=== PATIENT | female | born 1995 | race Caucasian/White ===

== ENCOUNTER 2017-12-24 10:07 | Emergency (ER) | payer OTHER ==
[~2017-12-24] VITALS: Ht 154.9 cm; Wt 45.4 kg
[2017-12-24 10:21] LABS: URINE BLOOD TRACE (Negative); URINE CLARITY SL CLOUDY; URINE COLOR DARK YELLOW; URINE GLUCOSE-RANDOM NEGATIVE (Negative); URINE KETONES 2+ (Negative); URINE LEUKOCYTES-REFLEX NEGATIVE (Negative); URINE NITRITE-REFLEX NEGATIVE (Negative); URINE PROTEIN 1+ (Negative); URINE SPECIFIC GRAVITY >= 1.030 (1.005-1.030); URINE UROBILINOGEN 0.2 E.U./dl (0.2-1.0)
[2017-12-24 10:27] LABS: ICTOTEST (BILI CONFIRMATORY) Negative (Negative); URINE BILIRUBIN 1+ (Negative)
[2017-12-24 10:30] LABS: AMORPHOUS URATES Few /LPF (None Seen); BACTERIA-REFLEX >30 Many /HPF (None Seen); CASTS None Seen /LPF (None Seen); MUCUS 4-6 Moderate strn/LPF (None Seen); SQUAMOUS >10 Many /LPF (0-3)
[2017-12-24 10:31] LABS: URINE RBC 0-2 Rare /HPF (0-2); URINE WBC-REFLEX 0-5 Rare /HPF (0-5)
[2017-12-24 10:48] LABS: ABSOLUTE LYMPHOCYTES 0.9 thou/uL (0.8-5.3); ABSOLUTE MONOCYTES 0.3 thou/uL (0.0-1.2); ABSOLUTE NEUTROPHILS 6.1 thou/uL (1.6-8.1); BASOPHILS 0.3 %; EOSINOPHILS 0.2 %; HEMATOCRIT 42.9 % (37.0-47.0); HEMOGLOBIN 14.3 gm/dL (12.0-15.0); LYMPHOCYTES 12.7 %; MCH 30.7 pg (26.0-34.0); MCHC 33.2 g/dL (28.0-37.0); MCV 92.5 fL (80.0-100.0); MONOCYTES 4.5 %; NUCLEATED RBCS 0 /100WBC; PLATELET COUNT* 162 thou/uL (150-400); POLYS 82.3 %; RBC 4.64 mil/uL (4.20-5.00); RDW-CV 12.9 % (10.5-14.5); WBC 7.4 thou/uL (4.0-11.0)
[2017-12-24 10:50] LABS: CALCIUM 9.1 mg/dL (8.5-10.1); CREATININE 0.8 mg/dL (0.6-1.3); POTASSIUM 3.2 mmol/L (3.5-5.1)
[2017-12-24 10:55] LABS: ALBUMIN 4.6 g/dL (3.4-5.0); TOTAL BILIRUBIN 1.6 mg/dL (<0.1-1.0); TOTAL PROTEIN 8.8 g/dL (6.4-8.2)
[2017-12-24] MEDS ORDERED: OMEPRAZOLE20 M1 PO (11:09)
[2017-12-24] MEDS ORDERED: ZOFRAN4 MG PO (11:10)
[2017-12-24 11:24] VITALS: BP 113/63
[2017-12-25] MEDS ORDERED: PROMS25 WY RECTAL (12:49)
== END 2017-12-24 11:24 | disposition home or self-care (01) ==
LOC: M.ERS 10:07
PROVIDERS: Nurse Practitioner Family
DX: R10.13 Epigastric pain (principal); R11.10 Vomiting, unspecified

== ENCOUNTER 2017-12-25 11:02 | Emergency (ER) | payer OTHER ==
[~2017-12-25] VITALS: Ht 154.9 cm; Wt 43.1 kg
[~2017-12-25 11:02] MED LIST: OMEPRAZOLE20 M1 PO; ZOFRAN4 MG PO
[2017-12-25 11:38] LABS: ABSOLUTE LYMPHOCYTES 1.5 thou/uL (0.8-5.3); ABSOLUTE MONOCYTES 0.6 thou/uL (0.0-1.2); ABSOLUTE NEUTROPHILS 8.4 thou/uL (1.6-8.1); BASOPHILS 0.4 %; HEMOGLOBIN 13.6 gm/dL (12.0-15.0); LYMPHOCYTES 14.3 %; MCHC 34.1 g/dL (28.0-37.0); MONOCYTES 5.6 %; MPV 9.5 fl. (7.2-11.1); NUCLEATED RBCS 0 /100WBC; PLATELET COUNT* 177 thou/uL (150-400); POLYS 79.7 %; RBC 4.39 mil/uL (4.20-5.00); RDW-CV 12.6 % (10.5-14.5); WBC 10.5 thou/uL (4.0-11.0)
[2017-12-25 11:46] LABS: CREATININE 0.8 mg/dL (0.6-1.3)
[2017-12-25 11:49] LABS: URINE BLOOD NEGATIVE (Negative); URINE CLARITY CLEAR; URINE COLOR YELLOW; URINE GLUCOSE-RANDOM NEGATIVE (Negative); URINE KETONES 2+ (Negative); URINE LEUKOCYTES-REFLEX NEGATIVE (Negative); URINE NITRITE-REFLEX NEGATIVE (Negative); URINE PROTEIN 1+ (Negative); URINE SPECIFIC GRAVITY >= 1.030 (1.005-1.030); URINE UROBILINOGEN 0.2 E.U./dl (0.2-1.0)
[2017-12-25 11:50] LABS: ALBUMIN 4.4 g/dL (3.4-5.0); TOTAL BILIRUBIN 1.9 mg/dL (<0.1-1.0); TOTAL PROTEIN 8.5 g/dL (6.4-8.2)
[2017-12-25 11:51] LABS: ICTOTEST (BILI CONFIRMATORY) Negative (Negative); URINE BILIRUBIN 1+ (Negative)
[2017-12-25] MEDS ORDERED: PROMS25 WY RECTAL (12:49)
[2017-12-25 13:12] VITALS: BP 106/56
== END 2017-12-25 13:14 | disposition home or self-care (01) ==
LOC: M.ERS 11:02
PROVIDERS: Nurse Practitioner Family
DX: R10.13 Epigastric pain (principal); R11.2 Nausea with vomiting, unspecified

== ENCOUNTER 2017-12-26 00:13 | Inpatient (IN) | payer OTHER ==
[~2017-12-26] VITALS: Ht 154.9 cm; Wt 45.4 kg
--- NOTE | ~2017-12-26 | PROC ---
[facility] [address] [facility] [place] [address] PROCEDURE REPORT Name: BLACK TEJADA Room: [address] IN .R.#: [id number] Admission: 12/26/17 Attend Phys: Rosa Hanks Discharge: Date of : 89 Report #: [id number] THIS REPORT FOR: //name// For GI report, please see the Provation report in Perceptive 7 content. By: 1056Medical Records Staff ZARI /ASHLEY
[~2017-12-26 00:13] MED LIST changes: +PROMS25 WY RECTAL
[2017-12-26 00:20] VITALS: BP 122/65
[2017-12-26 00:51] LABS: CALCIUM 9.2 mg/dL (8.5-10.1); CREATININE 0.8 mg/dL (0.6-1.3); POTASSIUM 3.7 mmol/L (3.5-5.1)
[2017-12-26 00:52] LABS: ABSOLUTE LYMPHOCYTES 1.4 thou/uL (0.8-5.3); ABSOLUTE MONOCYTES 0.6 thou/uL (0.0-1.2); ABSOLUTE NEUTROPHILS 6.3 thou/uL (1.6-8.1); BASOPHILS 0.1 %; HEMATOCRIT 37.1 % (37.0-47.0); HEMOGLOBIN 12.7 gm/dL (12.0-15.0); LYMPHOCYTES 17.2 %; MCH 31.3 pg (26.0-34.0); MCHC 34.4 g/dL (28.0-37.0); MCV 91.1 fL (80.0-100.0); MONOCYTES 6.8 %; MPV 9.6 fl. (7.2-11.1); NUCLEATED RBCS 0 /100WBC; PLATELET COUNT* 156 thou/uL (150-400); POLYS 75.9 %; RBC 4.07 mil/uL (4.20-5.00); RDW-CV 12.6 % (10.5-14.5); WBC 8.3 thou/uL (4.0-11.0)
[2017-12-26 00:56] LABS: ALBUMIN 4.4 g/dL (3.4-5.0); TOTAL BILIRUBIN 2.1 mg/dL (<0.1-1.0); TOTAL PROTEIN 8.1 g/dL (6.4-8.2)
[2017-12-26 00:57] LABS: URINE BILIRUBIN NEGATIVE (Negative); URINE BLOOD NEGATIVE (Negative); URINE CLARITY CLEAR; URINE COLOR YELLOW; URINE GLUCOSE-RANDOM NEGATIVE (Negative); URINE LEUKOCYTES-REFLEX NEGATIVE (Negative); URINE NITRITE-REFLEX NEGATIVE (Negative); URINE PROTEIN 1+ (Negative); URINE SPECIFIC GRAVITY >= 1.030 (1.005-1.030); URINE UROBILINOGEN 0.2 E.U./dl (0.2-1.0)
[2017-12-26 01:02] LABS: URINE KETONES 3+ (Negative)
[2017-12-26 01:06] LABS: URINE REDUCING SUBSTANCE NEGATIVE (Negative)
[2017-12-26 02:14] VITALS: BP 97/55
[2017-12-26 08:15] VITALS: BP 105/70
[2017-12-26 11:36] LABS: AMP/METHAMP Negative (Negative); BARBITURATES Negative (Negative); BENZODIAZEPINES Negative (Negative); COCAINE Negative (Negative); METHADONE Negative (Negative); OPIATES Negative (Negative); PCP Negative (Negative); THC POSITIVE (Negative)
[2017-12-26 13:07] VITALS: BP 105/70
[2017-12-26 14:01] LABS: ALBUMIN 3.5 g/dL (3.4-5.0); CALCIUM 7.7 mg/dL (8.5-10.1); CREATININE 0.7 mg/dL (0.6-1.3); POTASSIUM 3.5 mmol/L (3.5-5.1); TOTAL BILIRUBIN 1.6 mg/dL (<0.1-1.0); TOTAL PROTEIN 6.6 g/dL (6.4-8.2)
[2017-12-26 14:50] VITALS: BP 115/74
[2017-12-26 19:45] VITALS: BP 104/63
[2017-12-27 04:55] LABS: ABSOLUTE EOSINOPHILS 0.1 thou/uL (0.0-0.7); ABSOLUTE LYMPHOCYTES 2.5 thou/uL (0.8-5.3); ABSOLUTE MONOCYTES 0.5 thou/uL (0.0-1.2); ABSOLUTE NEUTROPHILS 2.1 thou/uL (1.6-8.1); BASOPHILS 0.4 %; EOSINOPHILS 1.2 %; HEMATOCRIT 32.7 % (37.0-47.0); HEMOGLOBIN 11.1 gm/dL (12.0-15.0); MCH 31.7 pg (26.0-34.0); MCV 93.2 fL (80.0-100.0); MONOCYTES 10.6 %; MPV 9.6 fl. (7.2-11.1); NUCLEATED RBCS 0 /100WBC; PLATELET COUNT* 100 thou/uL (150-400); POLYS 39.8 %; RDW-CV 12.9 % (10.5-14.5); WBC 5.2 thou/uL (4.0-11.0)
[2017-12-27 05:03] LABS: CALCIUM 7.3 mg/dL (8.5-10.1); CREATININE 0.6 mg/dL (0.6-1.3); POTASSIUM 3.4 mmol/L (3.5-5.1)
[2017-12-27 05:46] LABS: DIRECT BILIRUBIN 0.3 mg/dL (<0.1-0.3); TOTAL BILIRUBIN 1.4 mg/dL (<0.1-1.0); TOTAL PROTEIN 5.7 g/dL (6.4-8.2)
[2017-12-27 08:40] VITALS: BP 110/56
[2017-12-27 17:47] VITALS: BP 110/62
[2017-12-27 22:54] VITALS: BP 104/58
[2017-12-28 08:00] VITALS: BP 109/52
[2017-12-28 17:31] VITALS: BP 109/52
--- NOTE | 2018-01-03 12:32 | CON ---
[address] [address] CONSULTATION Name: BLACK TEJADA Room: [address] IN M.R.#: [id number] Admission: 12/26/17 Attend Phys: Rosa Hanks Discharge: 12/28/17 Date of : 89 Report #: [id number] THIS REPORT FOR: //name// CC: ARJUN physician/PCP Elliot Marmolejo DO DATE OF SERVICE: 12/26/2017 REASON FOR CONSULTATION: Epigastric pain, nausea and vomiting. HISTORY OF PRESENT ILLNESS: This is a 22-year-old female who presents to the hospital with persistent nausea and vomiting. The patient admits to using marijuana. She denies any diarrhea, constipation, hematochezia or melena. She complains of epigastric pain, which usually accompanies the nausea and vomiting. PAST MEDICAL HISTORY: Significant for abortions x 2, otherwise normal. No previous history. FAMILY HISTORY: Noncontributory. PHYSICAL EXAMINATION: VITAL SIGNS: Reveals normal vitals. LUNGS: Clear. CARDIOVASCULAR: Regular. ABDOMEN: Soft, tender to palpation in the epigastric region. Bowel sounds are positive. LABORATORY DATA: Labs reveal sodium of 137, potassium 3.5, BUN is 7, creatinine 0.7, glucose 82 and calcium is 7.7. is 1.6 with AST of 12, ALT of 17 and alkaline phosphatase of 33. Albumin is 3.5 and total protein is 6.6. Urine is positive for marijuana. IMAGING: Abdominal ultrasound was obtained, which showed thickened gallbladder wall with mild pericholecystic fluid. We will consider a HIDA scan. Meanwhile, we will do an EGD to assure that she does not have any gastritis versus gastroduodenal ulcer versus esophagitis. <ELECTRONICALLY SIGNED> By: Eric Clemente MD 01/03/18 1232 [id number] Clemente MD /nt
--- NOTE | 2018-02-03 07:46 | PATH ---
[address] [address] PATHOLOGY RPT PROCEDURE Name: HONEY TEJADA Room: [address] IN M.R.#: [id number] Admission: 12/26/17 Date of : 89 Discharge: 12/28/17 Report #: [id number] Path Case #: [id number] [facility] Accession Number: [id number] . 01 Material submitted: . GASTRIC BX, MILD GASTRITIS . 01 Clinical history: . Mild gastritis . 02 Diagnosis: Gastric biopsy: - Mild nonspecific chronic gastritis, negative for Helicobacter pylori organisms and dysplasia. [facility]/12/28/2017 . 02 Comment: Special stain: H. pylori immuno. . (JENNIFER:kristin; 12/28/17) . 02 Electronically signed: . Santiago Pringle MD, Pathologist NPI- [id number] . 01 Gross description: . Received in formalin labeled "Roshan, Honey, gastric BX," are three segments of loving soft tissue measuring 0.7 x 0.6 x 0.3 cm in aggregate dimensions and ranging from 0.3 to 0.6 cm in maximum dimension. The specimen is submitted entirely in cassette A1. ([facility]; 12/27/2017) XDC/XDC . 02 Pathologist provided ICD-10: K29.50 . 02 CPT . 840609, C46592 Specimen Comment: A courtesy copy of this report has been sent to Specimen Comment: [phone]. Performed at: [address], [place], [place] [id number] MD Gerhard Abreu MD Phone: [phone] Performed at: 02 [facility] [address], [place], [place] [id number] MD Santiago Pringle MD Phone: [phone]
== END 2017-12-28 18:43 | disposition home or self-care (01) | DRG 103 ==
LOC: M.ERS 00:13 → M.3W 01:39 → M.TBA-ER 01:39 → M.3W 02:24
PROVIDERS: Emergency Medicine; Internal Medicine; Internal Medicine Gastroenterology; ADMIT Internal Medicine
PROC: 0DB68ZX Excision of Stomach, Via Natural or Artificial Opening Endoscopic, Diagnostic (ICD-10-PCS; principal; 2017-12-26)
DX: G43.A0 Cyclical vomiting, in migraine, not intractable (principal); E86.0 Dehydration; F12.90 Cannabis use, unspecified, uncomplicated; E80.6 Other disorders of bilirubin metabolism; K31.89 Other diseases of stomach and duodenum

== ENCOUNTER 2018-06-28 17:02 | Emergency (ER) | payer OTHER ==
[~2018-06-28] VITALS: Ht 154.9 cm; Wt 47.6 kg
[2018-06-28 17:29] LABS: HEMATOCRIT 36.7 % (37.0-47.0); HEMOGLOBIN 12.3 gm/dL (12.0-15.0); MCH 31.3 pg (26.0-34.0); MCHC 33.6 g/dL (28.0-37.0); MCV 93.1 fL (80.0-100.0); MPV 8.5 fl. (7.2-11.1); NUCLEATED RBCS 0 /100WBC; PLATELET COUNT* 257 thou/uL (150-400); RBC 3.94 mil/uL (4.20-5.00); RDW-CV 12.2 % (10.5-14.5); WBC 9.9 thou/uL (4.0-11.0)
[2018-06-28 17:39] LABS: CALCIUM 8.4 mg/dL (8.5-10.1); CREATININE 0.8 mg/dL (0.6-1.3); POTASSIUM 3.5 mmol/L (3.5-5.1)
[2018-06-28 17:43] LABS: ALBUMIN 3.7 g/dL (3.4-5.0); TOTAL BILIRUBIN 0.6 mg/dL (<0.1-1.0); TOTAL PROTEIN 7.6 g/dL (6.4-8.2)
[2018-06-28] MEDS ORDERED: PHENERGAN 25 MG25 M1 PO (18:08)
[2018-06-28] MEDS ORDERED: PHENERGAN12.5 M2 RECTAL (18:08)
[2018-06-28 18:13] LABS: ABSOLUTE NEUTROPHILS 8.9 thou/uL (1.6-8.1); PLATELET ESTIMATE ADEQUATE
[2018-06-28 20:35] VITALS: BP 107/57
== END 2018-06-28 20:36 | disposition home or self-care (01) ==
LOC: M.ERS 17:02
PROVIDERS: Physician Assistant
DX: R11.2 Nausea with vomiting, unspecified (principal)

== ENCOUNTER 2018-06-30 11:11 | Emergency (ER) | payer OTHER ==
[~2018-06-30] VITALS: Ht 154.9 cm; Wt 47.6 kg
[~2018-06-30 11:11] MED LIST changes: +PHENERGAN 25 MG25 M1 PO; +PHENERGAN12.5 M2 RECTAL
[2018-06-30 11:34] LABS: URINE BILIRUBIN NEGATIVE (Negative); URINE BLOOD NEGATIVE (Negative); URINE CLARITY CLEAR; URINE COLOR YELLOW; URINE GLUCOSE-RANDOM NEGATIVE (Negative); URINE KETONES NEGATIVE (Negative); URINE LEUKOCYTES-REFLEX 1+ (Negative); URINE NITRITE-REFLEX NEGATIVE (Negative); URINE PROTEIN NEGATIVE (Negative); URINE UROBILINOGEN 0.2 E.U./dl (0.2-1.0)
[2018-06-30 11:42] LABS: SQUAMOUS 0-3 Few /LPF (0-3)
[2018-06-30 11:43] LABS: BACTERIA-REFLEX 1-9 Few /HPF (None Seen); CASTS None Seen /LPF (None Seen); CRYSTALS None Seen /LPF (None Seen); MUCUS 4-6 Moderate strn/LPF (None Seen); URINE RBC 0-2 Rare /HPF (0-2); URINE WBC-REFLEX 6-15 Few /HPF (0-5)
[2018-06-30 11:43] LABS: HEMATOCRIT 35.8 % (37.0-47.0); HEMOGLOBIN 11.9 gm/dL (12.0-15.0); MCH 31.3 pg (26.0-34.0); MCHC 33.3 g/dL (28.0-37.0); MCV 93.9 fL (80.0-100.0); MPV 8.6 fl. (7.2-11.1); NUCLEATED RBCS 0 /100WBC; PLATELET COUNT* 194 thou/uL (150-400); RBC 3.81 mil/uL (4.20-5.00); RDW-CV 12.5 % (10.5-14.5); WBC 7.8 thou/uL (4.0-11.0)
[2018-06-30 11:51] LABS: CALCIUM 8.2 mg/dL (8.5-10.1); CREATININE 0.8 mg/dL (0.6-1.3); POTASSIUM 3.1 mmol/L (3.5-5.1)
[2018-06-30 11:55] LABS: ALBUMIN 3.6 g/dL (3.4-5.0); TOTAL BILIRUBIN 0.6 mg/dL (<0.1-1.0); TOTAL PROTEIN 7.1 g/dL (6.4-8.2)
[2018-06-30 12:04] LABS: AMP/METHAMP Negative (Negative); BARBITURATES Negative (Negative); BENZODIAZEPINES Negative (Negative); COCAINE Negative (Negative); METHADONE Negative (Negative); OPIATES Negative (Negative); PCP Negative (Negative); THC POSITIVE (Negative)
[2018-06-30 12:06] LABS: ABSOLUTE LYMPHOCYTES 0.9 thou/uL (0.8-5.3); ABSOLUTE MONOCYTES 0.2 thou/uL (0.0-1.2); ABSOLUTE NEUTROPHILS 6.6 thou/uL (1.6-8.1); PLATELET ESTIMATE ADEQUATE
[2018-06-30 12:07] LABS: ANISOCYTOSIS 1+; POIKILOCYTOSIS 1+
[2018-06-30] MEDS ORDERED: ATIVAN0.5 MG PO (14:04)
[2018-06-30] MEDS ORDERED: BACTRIM DS TAB1 EACH PO (14:06)
[2018-06-30 14:22] VITALS: BP 132/78
== END 2018-06-30 14:22 | disposition home or self-care (01) ==
LOC: M.ERS 11:11
PROVIDERS: Physician Assistant
DX: N39.0 Urinary tract infection, site not specified (principal); F12.10 Cannabis abuse, uncomplicated; R11.2 Nausea with vomiting, unspecified

== ENCOUNTER 2018-07-01 03:41 | Inpatient (IN) | payer OTHER ==
[2018-07-01] VITALS (7 sets, daily range): BP systolic 98–118; BP diastolic 49–80
[~2018-07-01] VITALS: Ht 154.9 cm; Wt 46.7 kg
[~2018-07-01 03:41] MED LIST changes: +ATIVAN0.5 MG PO; +BACTRIM DS TAB1 EACH PO
[2018-07-01 04:03] LABS: URINE BILIRUBIN NEGATIVE (Negative); URINE BLOOD TRACE (Negative); URINE CLARITY CLEAR; URINE COLOR YELLOW; URINE GLUCOSE-RANDOM NEGATIVE (Negative); URINE LEUKOCYTES-REFLEX 1+ (Negative); URINE NITRITE-REFLEX NEGATIVE (Negative); URINE PROTEIN NEGATIVE (Negative); URINE SPECIFIC GRAVITY >= 1.030 (1.005-1.030); URINE UROBILINOGEN 0.2 E.U./dl (0.2-1.0)
[2018-07-01 04:06] LABS: URINE KETONES 3+ (Negative)
[2018-07-01 04:07] LABS: ABSOLUTE LYMPHOCYTES 1.2 thou/uL (0.8-5.3); ABSOLUTE MONOCYTES 0.6 thou/uL (0.0-1.2); ABSOLUTE NEUTROPHILS 6.7 thou/uL (1.6-8.1); BASOPHILS 0.2 %; EOSINOPHILS 0.2 %; HEMATOCRIT 34.6 % (37.0-47.0); HEMOGLOBIN 11.7 gm/dL (12.0-15.0); LYMPHOCYTES 14.5 %; MCH 31.5 pg (26.0-34.0); MCHC 33.8 g/dL (28.0-37.0); MCV 93.3 fL (80.0-100.0); MONOCYTES 6.9 %; MPV 8.8 fl. (7.2-11.1); NUCLEATED RBCS 0 /100WBC; PLATELET COUNT* 189 thou/uL (150-400); POLYS 78.2 %; RBC 3.71 mil/uL (4.20-5.00); RDW-CV 12.9 % (10.5-14.5); WBC 8.6 thou/uL (4.0-11.0)
[2018-07-01 04:16] LABS: CALCIUM 7.9 mg/dL (8.5-10.1); CREATININE 0.7 mg/dL (0.6-1.3); POTASSIUM 3.1 mmol/L (3.5-5.1)
[2018-07-01 04:21] LABS: ALBUMIN 3.4 g/dL (3.4-5.0); TOTAL PROTEIN 6.8 g/dL (6.4-8.2)
--- NOTE | 2018-07-01 04:30 | NUR ---
PATIENT STATES SHE HAS HAD NAUSEA AND VOMITING FOR SEVERAL DAYS. PATIENT HAS NOT VOMITED SINCE ARRIVING TO THE ED. CONTINUES TO STATE SHE IS NAUSEOUS AND HAS ABDOMINAL PAIN. PATIENT ALSO CONTINUES TO ASK THAT WE GIVE HER MORPHINE AND PROMETHAZINE. STATES SHE DID NOT FILL HER PRESCRIPTIONS BECAUSE "THEY DO NOT WORK". ALSO STATES "PHENERGAN DOES NOT WORK, ONLY PROMETHAZINE AND MORPHINE." PATIENT EDUCATED THAT PHENERGAN AND PROMETHAZINE ARE THE SAME MEDICATIONS.
[2018-07-01 05:36] LABS: BACTERIA-REFLEX >30 Many /HPF (None Seen); CASTS None Seen /LPF (None Seen); CRYSTALS None Seen /LPF (None Seen); MUCUS 4-6 Moderate strn/LPF (None Seen); SQUAMOUS 0-3 Few /LPF (0-3); URINE RBC 3-10 Few /HPF (0-2); URINE WBC-REFLEX >25 Many /HPF (0-5); WBC CLUMPS Few (None Seen)
--- NOTE | 2018-07-01 07:32 | NUR ---
RECEIVED REPORT FROM [employer] HELPERMUNDO BAUMAN AT 0615, PT ARRIVED TO UNIT AT 0625 VIA CART. PT AAOX4, CALM, COOPERATIVE, ABLE TO VOICE NEEDS. PT NPO FOR ABD ULTRASOUND. ADMIT ASSESSMENT COMPLETED. NEGATIVE FOR SEPSIS SCREENING. HOURLY ROUNDING COMPLETED. CALL LIGHT WITHIN REACH. VOICED NO CONCERNS AT THIS TIME.
--- NOTE | 2018-07-01 10:15 | NUR ---
INITIAL ASSESSMENT: Pt evaluated for d/c planning needs. Reviewed chart and spoke with nurse, physician and pt. Pt is alert and oriented. Pt lives at home with her mother and has no insurance. Pt states she is not working at this time. Pt said she has quit using marijuana, even though UDS was positive. Pt said she did not take antibiotic that was prescribed on previous visit to the ER because she did not have time. [facility] Pt plans on returning home on d/c from hospital. Will remain available to assist as needed.
--- NOTE | 2018-07-01 19:49 | NUR ---
PT LYING IN BED, UP FOR MEALS, POTASSIUM GIVEN X3 DOSES FOR ELECTROLYTE PROTOCOL. K+ TO BE REDRAWN AT 1930. PT C/O NAUSEA AT TIMES, PRN REGLAN ON BOARD. VSS, PT ON RA, DENIES PAIN AT THIS TIME. C/O LOOSE BM THIS SHIFT, UP AD MATEO. PT REMAINS ON CLEAR LIQUID DIET UNTIL PIPIDA SCAN COMPLETED. HOURLY ROUNDING COMPLETED.
[2018-07-02] VITALS: BP 105/61
[2018-07-02 04:17] LABS: HEMATOCRIT 31.9 % (37.0-47.0); HEMOGLOBIN 10.8 gm/dL (12.0-15.0); MCH 31.5 pg (26.0-34.0); MCHC 33.7 g/dL (28.0-37.0); MCV 93.6 fL (80.0-100.0); MPV 8.8 fl. (7.2-11.1); RBC 3.41 mil/uL (4.20-5.00); RDW-CV 12.7 % (10.5-14.5)
[2018-07-02 04:59] LABS: ALBUMIN 2.9 g/dL (3.4-5.0); CALCIUM 7.6 mg/dL (8.5-10.1); CREATININE 0.6 mg/dL (0.6-1.3); MAGNESIUM 1.7 mg/dL (1.8-2.4); POTASSIUM 4.2 mmol/L (3.5-5.1); TOTAL BILIRUBIN 0.8 mg/dL (<0.1-1.0); TOTAL PROTEIN 5.9 g/dL (6.4-8.2)
--- NOTE | 2018-07-02 07:25 | NUR ---
ASSUMED PT CARE AT 1930. NURSING ASSESSMENT COMPLETED AT START OF SHIFT. PT C/O NAUSEA. PRN ZOFRAN ADMINISTERED. PT UP AD MATEO. AAOX4. HOURLY ROUNDING COMPLETED. CALL LIGHT WITHIN REACH.
[2018-07-02 08:00] VITALS: BP 121/71
--- NOTE | 2018-07-02 08:00 | NUR ---
ASSUMED PT CARE AT 0700, PT LYING IN BED, CALL LIGHT IN REACH. A&O X4, UP AD MATEO, CONT ON MED SURG STATUS. VSS, DENIES ANY PAIN, NAUSEA AT THIS TIME. FLUIDS RUNNING AT 100ML/HR, CONT ON CLEAR LIQUID DIET. WILL CONT TO MONITOR.
--- NOTE | 2018-07-02 15:00 | NUR ---
PATIENT ARRIVED TO UNIT FROM TELE AT 1440. ALERT AND ORIENTED X 4. VITAL SIGNS STABLE ON ROOM AIR. AGREE WITH PREVIOUS CHARTING AND ASSESSMENTS.
--- NOTE | 2018-07-02 15:00 | NUR ---
PT TRANSFERRED TO [facility] VIA BED, FLUIDS RUNNING, REPORT GIVEN.
[2018-07-02 17:02] VITALS: BP 117/65
[2018-07-02 22:15] VITALS: BP 100/55
[2018-07-03] VITALS: BP 90/40
--- NOTE | 2018-07-03 07:48 | NUR ---
PATIENT HAS SLEPT WELL THROUGHOUT THE NIGHT. VSS ON RA, ALTHOUGH BP SLIGHTLY LOW. PATIENT HAS REMAINED NPO SINCE 0200 D/T SCHEDULED PIPIDA THIS AM. NO C/O NAUSEA OR PAIN DURING SHIFT. IV IN LEFT AC-NS @ 100ML/HR. PATIENT IS UP AD-MATEO AND STEADY ON FEET. PATIENT INSTRUCTED TO USE CALL LIGHT WHEN NEEDING ASSISTANCE. HOURLY ROUNDS MADE. WILL CONTINUE WITH PLAN OF CARE AND NURSING TO MONITOR.
[2018-07-03 08:45] VITALS: BP 100/53
[2018-07-03] MEDS ORDERED: ZOFRAN ODT4 MG PO (08:46)
[2018-07-03] MEDS ORDERED: TRANSDERM-SCOP1 EACH TRANSDERM (08:46)
--- NOTE | 2018-07-03 15:06 | NUR ---
SPOKE WITH DR. TOLLIVER. INFORMED OF PIPIDA RESULTS. LOW FAT DIET ORDERED. IF PATIENT TOLERATES SHE MAY DC TONIGHT AND FOLLOW UP OUTPT. NO PLANS FOR SURGERY AT THIS TIME DUE TO POSITIVE MONO. WILL CONTINUE TO MONITOR.
[2018-07-03 15:07] VITALS: BP 100/53
[2018-07-03 16:00] VITALS: BP 110/45
--- NOTE | 2018-07-03 17:31 | NUR ---
PATIENT DISCHARGED TO HOME. TOLERATED LOW FAT DIET. VERBALIZED UNDERSTANDING OF NEED TO FOLLOW UP WITH GENERAL SURGERY. IV REMOVED. SCRIPTS GIVEN FOR SCOPALAMINE, AND ZOFRAN. DISCHARGED WITH PARENT.
[2018-07-04 08:14] LABS: HEPATITIS B SURFACE AG Negative (Negative)
[2018-07-05 03:07] LABS: EBNA-1 IgG 38.3 U/mL (0.0-17.9); EBV EA IgG <9.0 U/mL (0.0-8.9); EBV VCA IgM <36.0 U/mL (0.0-35.9)
== END 2018-07-03 17:20 | disposition home or self-care (01) | DRG 866 ==
LOC: M.ERS 03:41 → M.ORTHSURG 05:46 → M.2W 05:46 → M.TBA-ER 05:46 → M.2W 06:17 → M.ORTHSURG 07-02 14:40
PROVIDERS: Emergency Medicine Emergency Medical Services; Internal Medicine; Surgery; ADMIT Internal Medicine
DX: B34.9 Viral infection, unspecified (principal); E83.42 Hypomagnesemia; F12.90 Cannabis use, unspecified, uncomplicated; B27.00 Gammaherpesviral mononucleosis without complication; K82.8 Other specified diseases of gallbladder; Z79.899 Other long term (current) drug therapy; Z82.0 Family history of epilepsy and other diseases of the nervous system

== ENCOUNTER 2018-08-13 10:52 | Emergency (ER) | payer OTHER ==
[~2018-08-13] VITALS: Ht 154.9 cm; Wt 49.9 kg
[~2018-08-13 10:52] MED LIST changes: +TRANSDERM-SCOP1 EACH TRANSDERM; +ZOFRAN ODT4 MG PO
[2018-08-13 11:41] LABS: ABSOLUTE EOSINOPHILS 0.1 thou/uL (0.0-0.7); ABSOLUTE LYMPHOCYTES 1.4 thou/uL (0.8-5.3); ABSOLUTE MONOCYTES 0.7 thou/uL (0.0-1.2); ABSOLUTE NEUTROPHILS 7.3 thou/uL (1.6-8.1); BASOPHILS 0.3 %; EOSINOPHILS 0.6 %; HEMATOCRIT 41.6 % (37.0-47.0); LYMPHOCYTES 14.3 %; MCH 31.3 pg (26.0-34.0); MCHC 33.7 g/dL (28.0-37.0); MCV 92.7 fL (80.0-100.0); MONOCYTES 7.4 %; MPV 8.7 fl. (7.2-11.1); NUCLEATED RBCS 0 /100WBC; PLATELET COUNT* 210 thou/uL (150-400); POLYS 77.4 %; RBC 4.48 mil/uL (4.20-5.00); RDW-CV 13.6 % (10.5-14.5); WBC 9.5 thou/uL (4.0-11.0)
[2018-08-13 11:44] LABS: URINE BILIRUBIN NEGATIVE (Negative); URINE BLOOD 3+ (Negative); URINE CLARITY CLEAR; URINE COLOR YELLOW; URINE GLUCOSE-RANDOM NEGATIVE (Negative); URINE KETONES 1+ (Negative); URINE LEUKOCYTES-REFLEX 1+ (Negative); URINE NITRITE-REFLEX NEGATIVE (Negative); URINE PROTEIN NEGATIVE (Negative); URINE SPECIFIC GRAVITY >= 1.030 (1.005-1.030)
[2018-08-13 11:47] LABS: SQUAMOUS 4-10 Moderate /LPF (0-3); URINE WBC-REFLEX 6-15 Few /HPF (0-5)
[2018-08-13 11:48] LABS: MUCUS >6 Heavy strn/LPF (None Seen); URINE RBC 3-10 Few /HPF (0-2)
[2018-08-13 11:49] LABS: CASTS None Seen /LPF (None Seen); CRYSTALS None Seen /LPF (None Seen)
[2018-08-13 11:54] LABS: ALBUMIN 4.2 g/dL (3.4-5.0); CREATININE 0.8 mg/dL (0.6-1.3); POTASSIUM 3.3 mmol/L (3.5-5.1); TOTAL BILIRUBIN 1.5 mg/dL (<0.1-1.0); TOTAL PROTEIN 8.4 g/dL (6.4-8.2)
[2018-08-13 13:31] VITALS: BP 93/51
== END 2018-08-13 13:32 | disposition home or self-care (01) ==
LOC: M.ERS 10:52
PROVIDERS: Nurse Practitioner Family
DX: R11.2 Nausea with vomiting, unspecified (principal)

== ENCOUNTER 2018-08-16 10:25 | Emergency (ER) | payer OTHER ==
[~2018-08-16] VITALS: Ht 154.9 cm; Wt 51.1 kg
[2018-08-16 11:18] LABS: URINE BILIRUBIN NEGATIVE (Negative); URINE BLOOD NEGATIVE (Negative); URINE CLARITY CLEAR; URINE COLOR YELLOW; URINE GLUCOSE-RANDOM NEGATIVE (Negative); URINE KETONES TRACE (Negative); URINE LEUKOCYTES-REFLEX NEGATIVE (Negative); URINE NITRITE-REFLEX NEGATIVE (Negative); URINE PROTEIN NEGATIVE (Negative); URINE UROBILINOGEN 0.2 E.U./dl (0.2-1.0)
[2018-08-16 11:19] LABS: ABSOLUTE LYMPHOCYTES 1.2 thou/uL (0.8-5.3); ABSOLUTE MONOCYTES 0.4 thou/uL (0.0-1.2); ABSOLUTE NEUTROPHILS 7.4 thou/uL (1.6-8.1); BASOPHILS 0.4 %; EOSINOPHILS 0.3 %; HEMOGLOBIN 13.6 gm/dL (12.0-15.0); LYMPHOCYTES 12.9 %; MCH 31.1 pg (26.0-34.0); MCV 91.3 fL (80.0-100.0); MPV 8.6 fl. (7.2-11.1); NUCLEATED RBCS 0 /100WBC; PLATELET COUNT* 220 thou/uL (150-400); POLYS 82.4 %; RBC 4.37 mil/uL (4.20-5.00); RDW-CV 13.5 % (10.5-14.5)
[2018-08-16 11:30] LABS: ALBUMIN 4.5 g/dL (3.4-5.0); CALCIUM 9.3 mg/dL (8.5-10.1); CREATININE 0.8 mg/dL (0.6-1.3); POTASSIUM 3.7 mmol/L (3.5-5.1); TOTAL BILIRUBIN 1.3 mg/dL (<0.1-1.0); TOTAL PROTEIN 8.7 g/dL (6.4-8.2)
[2018-08-16] MEDS ORDERED: HYDROCODON-ACE1 EAC7 PO (12:04)
[2018-08-16] MEDS ORDERED: PHENERGAN 25 MG25 M1 PO (12:04)
[2018-08-16 12:58] VITALS: BP 103/40
== END 2018-08-16 12:59 | disposition home or self-care (01) ==
LOC: M.ERS 10:25
PROVIDERS: Personal Emergency Response Attendant
DX: R11.2 Nausea with vomiting, unspecified (principal)

== ENCOUNTER 2018-08-20 21:19 | Emergency (ER) | payer OTHER ==
[~2018-08-20] VITALS: Ht 154.9 cm; Wt 49.9 kg
[~2018-08-20 21:19] MED LIST changes: +HYDROCODON-ACE1 EAC7 PO
[2018-08-20 21:56] LABS: ABSOLUTE LYMPHOCYTES 1.1 thou/uL (0.8-5.3); ABSOLUTE MONOCYTES 0.3 thou/uL (0.0-1.2); ABSOLUTE NEUTROPHILS 6.4 thou/uL (1.6-8.1); BASOPHILS 0.4 %; HEMOGLOBIN 11.8 gm/dL (12.0-15.0); LYMPHOCYTES 13.5 %; MCH 31.4 pg (26.0-34.0); MCHC 33.8 g/dL (28.0-37.0); MCV 92.8 fL (80.0-100.0); MONOCYTES 4.3 %; MPV 8.8 fl. (7.2-11.1); NUCLEATED RBCS 0 /100WBC; PLATELET COUNT* 188 thou/uL (150-400); POLYS 81.8 %; RBC 3.77 mil/uL (4.20-5.00); RDW-CV 13.6 % (10.5-14.5); WBC 7.9 thou/uL (4.0-11.0)
[2018-08-20 22:07] LABS: ALBUMIN 3.9 g/dL (3.4-5.0); CALCIUM 8.4 mg/dL (8.5-10.1); CREATININE 0.8 mg/dL (0.6-1.3); POTASSIUM 3.4 mmol/L (3.5-5.1); TOTAL BILIRUBIN 0.8 mg/dL (<0.1-1.0); TOTAL PROTEIN 7.4 g/dL (6.4-8.2)
[2018-08-20 22:41] LABS: URINE BILIRUBIN NEGATIVE (Negative); URINE BLOOD NEGATIVE (Negative); URINE CLARITY CLEAR; URINE COLOR YELLOW; URINE GLUCOSE-RANDOM NEGATIVE (Negative); URINE KETONES 1+ (Negative); URINE LEUKOCYTES-REFLEX 1+ (Negative); URINE NITRITE-REFLEX NEGATIVE (Negative); URINE PROTEIN TRACE (Negative); URINE UROBILINOGEN 0.2 E.U./dl (0.2-1.0)
[2018-08-20] MEDS ORDERED: POTASSIUM20 PO ×2 (23:12)
[2018-08-20 23:46] LABS: CASTS None Seen /LPF (None Seen); SQUAMOUS >10 Many /LPF (0-3)
[2018-08-20 23:54] LABS: MUCUS 4-6 Moderate strn/LPF (None Seen)
[2018-08-20 23:56] LABS: URINE RBC None Seen /HPF (0-2)
[2018-08-20 23:57] LABS: CRYSTALS None Seen /LPF (None Seen)
[2018-08-21] MEDS ORDERED: FLAGYL500 M1 PO ×2 (00:16)
[2018-08-21 00:18] LABS: AMP/METHAMP Negative (Negative); BARBITURATES Negative (Negative); BENZODIAZEPINES Negative (Negative); COCAINE Negative (Negative); METHADONE Negative (Negative); OPIATES POSITIVE (Negative); PCP Negative (Negative); THC POSITIVE (Negative)
[2018-08-21 00:22] VITALS: BP 128/78
[2018-08-21] MEDS ORDERED: PHENERGAN12.5 M2 RECTAL (16:34)
== END 2018-08-21 00:22 | disposition home or self-care (01) ==
LOC: M.ERS 21:19
PROVIDERS: Nurse Practitioner Family
DX: A59.9 Trichomoniasis, unspecified (principal); R11.2 Nausea with vomiting, unspecified; Z79.899 Other long term (current) drug therapy

== ENCOUNTER 2018-08-21 15:35 | Emergency (ER) | payer OTHER ==
[~2018-08-21] VITALS: Ht 154.9 cm; Wt 49.9 kg
[~2018-08-21 15:35] MED LIST changes: +FLAGYL500 M1 PO; +POTASSIUM20 PO
[2018-08-21] MEDS ORDERED: PHENERGAN12.5 M2 RECTAL (16:34)
[2018-08-21 17:28] VITALS: BP 132/79
== END 2018-08-21 17:28 | disposition home or self-care (01) ==
LOC: M.ERS 15:35
DX: R11.2 Nausea with vomiting, unspecified (principal)

== ENCOUNTER 2018-09-03 15:53 | Emergency (ER) | payer OTHER ==
[~2018-09-03] VITALS: Ht 154.9 cm; Wt 49.9 kg
[2018-09-03 16:52] LABS: HEMOGLOBIN 13.6 gm/dL (12.0-15.0); MCH 31.6 pg (26.0-34.0); MCHC 33.9 g/dL (28.0-37.0); MCV 93.2 fL (80.0-100.0); MPV 9.1 fl. (7.2-11.1); NUCLEATED RBCS 0 /100WBC; PLATELET COUNT* 219 thou/uL (150-400); RDW-CV 13.8 % (10.5-14.5); WBC 10.8 thou/uL (4.0-11.0)
[2018-09-03 16:53] LABS: URINE BILIRUBIN NEGATIVE (Negative); URINE BLOOD NEGATIVE (Negative); URINE CLARITY CLEAR; URINE COLOR YELLOW; URINE GLUCOSE-RANDOM NEGATIVE (Negative); URINE LEUKOCYTES NEGATIVE (Negative); URINE NITRITE NEGATIVE (Negative); URINE PROTEIN 1+ (Negative); URINE UROBILINOGEN 0.2 E.U./dl (0.2-1.0)
[2018-09-03 16:54] LABS: URINE KETONES 3+ (Negative)
[2018-09-03 17:18] LABS: ALBUMIN 4.3 g/dL (3.4-5.0); CREATININE 0.9 mg/dL (0.6-1.3); POTASSIUM 3.5 mmol/L (3.5-5.1); TOTAL BILIRUBIN 0.9 mg/dL (<0.1-1.0); TOTAL PROTEIN 8.3 g/dL (6.4-8.2)
[2018-09-03 17:30] LABS: ABSOLUTE MONOCYTES 0.2 thou/uL (0.0-1.2); ABSOLUTE NEUTROPHILS 9.6 thou/uL (1.6-8.1); PLATELET ESTIMATE ADEQUATE
[2018-09-03] MEDS ORDERED: ZOFRAN ODT4 MG DISSOLVE (18:31)
[2018-09-03 19:07] VITALS: BP 103/58
== END 2018-09-03 19:37 | disposition home or self-care (01) ==
LOC: M.ERS 15:53
PROVIDERS: Nurse Practitioner Family
DX: R11.2 Nausea with vomiting, unspecified (principal); R10.10 Upper abdominal pain, unspecified

== ENCOUNTER 2018-09-27 10:47 | Emergency (ER) | payer OTHER ==
[~2018-09-27] VITALS: Ht 154.9 cm; Wt 52.2 kg
[~2018-09-27 10:47] MED LIST changes: +ZOFRAN ODT4 MG DISSOLVE
[2018-09-27 11:04] LABS: URINE BLOOD 1+ (Negative); URINE CLARITY CLEAR; URINE COLOR YELLOW; URINE GLUCOSE-RANDOM NEGATIVE (Negative); URINE KETONES TRACE (Negative); URINE LEUKOCYTES-REFLEX NEGATIVE (Negative); URINE NITRITE-REFLEX NEGATIVE (Negative); URINE PROTEIN 1+ (Negative); URINE SPECIFIC GRAVITY >= 1.030 (1.005-1.030); URINE UROBILINOGEN 0.2 E.U./dl (0.2-1.0)
[2018-09-27 11:07] LABS: ICTOTEST (BILI CONFIRMATORY) Negative (Negative); URINE BILIRUBIN 1+ (Negative)
[2018-09-27 11:09] LABS: BACTERIA-REFLEX 1-9 Few /HPF (None Seen); CASTS None Seen /LPF (None Seen); CRYSTALS None Seen /LPF (None Seen); MUCUS 4-6 Moderate strn/LPF (None Seen); SQUAMOUS >10 Many /LPF (0-3); URINE RBC 3-10 Few /HPF (0-2); URINE WBC-REFLEX 0-5 Rare /HPF (0-5)
[2018-09-27 11:21] LABS: ABSOLUTE LYMPHOCYTES 1.7 thou/uL (0.8-5.3); ABSOLUTE MONOCYTES 0.8 thou/uL (0.0-1.2); ABSOLUTE NEUTROPHILS 9.5 thou/uL (1.6-8.1); BASOPHILS 0.4 %; EOSINOPHILS 0.1 %; HEMATOCRIT 38.8 % (37.0-47.0); HEMOGLOBIN 13.2 gm/dL (12.0-15.0); LYMPHOCYTES 13.9 %; MCH 31.1 pg (26.0-34.0); MCV 91.5 fL (80.0-100.0); MONOCYTES 6.3 %; MPV 9.1 fl. (7.2-11.1); NUCLEATED RBCS 0 /100WBC; PLATELET COUNT* 256 thou/uL (150-400); POLYS 79.3 %; RBC 4.25 mil/uL (4.20-5.00); RDW-CV 13.2 % (10.5-14.5)
[2018-09-27 11:26] LABS: CALCIUM 8.8 mg/dL (8.5-10.1); CREATININE 0.8 mg/dL (0.6-1.3); POTASSIUM 3.5 mmol/L (3.5-5.1)
[2018-09-27 11:30] LABS: ALBUMIN 4.2 g/dL (3.4-5.0); TOTAL BILIRUBIN 1.1 mg/dL (<0.1-1.0); TOTAL PROTEIN 8.2 g/dL (6.4-8.2)
[2018-09-27 11:35] LABS: AMP/METHAMP Negative (Negative); BARBITURATES Negative (Negative); BENZODIAZEPINES Negative (Negative); COCAINE Negative (Negative); METHADONE Negative (Negative); OPIATES Negative (Negative); PCP Negative (Negative); THC POSITIVE (Negative)
[2018-09-27] MEDS ORDERED: PROMS25 WY RECTAL (11:54)
[2018-09-27] MEDS ORDERED: PHENERGAN 25 MG25 M1 PO (11:54)
[2018-09-27] MEDS ORDERED: HIGH POTENCY42.5 GM TOP (11:54)
[2018-09-27] MEDS ORDERED: BENTYL 20 MG TA20 M1 PO (11:55)
[2018-09-27 12:07] VITALS: BP 99/60
[2018-09-28] MEDS ORDERED: ZOFRAN ODT4 MG DISSOLVE (10:59)
== END 2018-09-27 12:08 | disposition home or self-care (01) ==
LOC: M.ERS 10:47
PROVIDERS: Nurse Practitioner Family
DX: G89.29 Other chronic pain (principal); R10.13 Epigastric pain; R11.2 Nausea with vomiting, unspecified

== ENCOUNTER 2018-09-28 09:10 | Emergency (ER) | payer OTHER ==
[~2018-09-28] VITALS: Ht 157.5 cm; Wt 63.5 kg
[~2018-09-28 09:10] MED LIST changes: +BENTYL 20 MG TA20 M1 PO; +HIGH POTENCY42.5 GM TOP
[2018-09-28] MEDS ORDERED: ZOFRAN ODT4 MG DISSOLVE (10:59)
[2018-09-28 11:12] VITALS: BP 106/64
[2018-09-28 11:18] LABS: ABSOLUTE LYMPHOCYTES 0.9 thou/uL (0.8-5.3); ABSOLUTE MONOCYTES 0.5 thou/uL (0.0-1.2); ABSOLUTE NEUTROPHILS 6.1 thou/uL (1.6-8.1); BASOPHILS 0.3 %; EOSINOPHILS 0.3 %; HEMATOCRIT 37.2 % (37.0-47.0); HEMOGLOBIN 12.3 gm/dL (12.0-15.0); MCV 93.8 fL (80.0-100.0); MONOCYTES 6.3 %; MPV 9.9 fl. (7.2-11.1); NUCLEATED RBCS 0 /100WBC; PLATELET COUNT* 230 thou/uL (150-400); POLYS 81.1 %; RBC 3.96 mil/uL (4.20-5.00); RDW-CV 13.5 % (10.5-14.5); WBC 7.5 thou/uL (4.0-11.0)
[2018-09-28 11:26] LABS: ALBUMIN 3.5 g/dL (3.4-5.0); CREATININE 0.8 mg/dL (0.6-1.3); POTASSIUM 3.6 mmol/L (3.5-5.1); TOTAL BILIRUBIN 0.6 mg/dL (<0.1-1.0)
[2018-09-28 12:40] LABS: ABSOLUTE BASOPHILS ND thou/uL (0.0-0.2); ABSOLUTE EOSINOPHILS ND thou/uL (0.0-0.7); ABSOLUTE LYMPHOCYTES ND thou/uL (0.8-5.3); ABSOLUTE MONOCYTES ND thou/uL (0.0-1.2); ABSOLUTE NEUTROPHILS ND thou/uL (1.6-8.1); ATYPICAL MONONUCLEARS ND %; BANDS ND %; BASOPHILS ND %; BLASTS ND %; EOSINOPHILS ND %; HEMATOCRIT ND % (37.0-47.0); HEMOGLOBIN ND gm/dL (12.0-15.0); LYMPHOCYTES ND %; MCH ND pg (26.0-34.0); MCHC ND g/dL (28.0-37.0); MCV ND fL (80.0-100.0); METAMYELOCYTES ND %; MONOCYTES ND %; MPV ND fl. (7.2-11.1); MYELOCYTES ND %; NUCLEATED RBCS ND /100WBC; PLATELET COUNT* ND thou/uL (150-400); PLATELET ESTIMATE ND; POLYS ND %; PROMYELOCYTES ND %; RBC ND mil/uL (4.20-5.00); RDW-CV ND % (10.5-14.5); WBC ND thou/uL (4.0-11.0)
[2018-09-28 12:41] LABS: ALBUMIN ND g/dL (3.4-5.0); ALKALINE PHOSPHATASE ND U/L (46-116); ANION GAP ND mmol/L (7-16); BUN ND mg/dL (7-18); CALCIUM ND mg/dL (8.5-10.1); CHLORIDE ND mmol/L (98-107); CO2 ND mmol/L (21-32); CREATININE ND mg/dL (0.6-1.3); GLUCOSE ND mg/dL (70-99); LIPASE ND U/L (73-393); POTASSIUM ND mmol/L (3.5-5.1); SGOT ND U/L (15-37); SGPT ND U/L (30-65); SODIUM ND mmol/L (136-145); TOTAL BILIRUBIN ND mg/dL (<0.1-1.0); TOTAL PROTEIN ND g/dL (6.4-8.2)
== END 2018-09-28 11:13 | disposition home or self-care (01) ==
LOC: M.ERS 09:10
PROVIDERS: Emergency Medicine Emergency Medical Services
DX: R11.2 Nausea with vomiting, unspecified (principal); R10.13 Epigastric pain

== ENCOUNTER 2018-09-30 17:11 | Emergency (ER) | payer OTHER ==
[~2018-09-30] VITALS: Ht 154.9 cm; Wt 49.9 kg
[2018-09-30 17:26] LABS: URINE BILIRUBIN NEGATIVE (Negative); URINE BLOOD NEGATIVE (Negative); URINE CLARITY SL CLOUDY; URINE COLOR YELLOW; URINE GLUCOSE-RANDOM NEGATIVE (Negative); URINE KETONES 1+ (Negative); URINE LEUKOCYTES-REFLEX NEGATIVE (Negative); URINE NITRITE-REFLEX NEGATIVE (Negative); URINE PROTEIN TRACE (Negative); URINE SPECIFIC GRAVITY 1.015 (1.005-1.030); URINE UROBILINOGEN 0.2 E.U./dl (0.2-1.0)
[2018-09-30] MEDS ORDERED: PROMS25 WY RECTAL (17:33)
[2018-09-30 17:35] LABS: AMP/METHAMP Negative (Negative); BARBITURATES Negative (Negative); BENZODIAZEPINES Negative (Negative); COCAINE Negative (Negative); METHADONE Negative (Negative); OPIATES Negative (Negative); PCP Negative (Negative); THC POSITIVE (Negative)
[2018-09-30 17:43] LABS: ABSOLUTE LYMPHOCYTES 1.6 thou/uL (0.8-5.3); ABSOLUTE MONOCYTES 0.5 thou/uL (0.0-1.2); BASOPHILS 0.4 %; EOSINOPHILS 0.1 %; HEMATOCRIT 37.9 % (37.0-47.0); HEMOGLOBIN 12.8 gm/dL (12.0-15.0); LYMPHOCYTES 17.5 %; MCHC 33.8 g/dL (28.0-37.0); MCV 91.9 fL (80.0-100.0); MPV 9.1 fl. (7.2-11.1); NUCLEATED RBCS 0 /100WBC; PLATELET COUNT* 207 thou/uL (150-400); RBC 4.13 mil/uL (4.20-5.00); RDW-CV 13.1 % (10.5-14.5); WBC 9.2 thou/uL (4.0-11.0)
[2018-09-30 17:55] LABS: CALCIUM 8.8 mg/dL (8.5-10.1); CREATININE 0.8 mg/dL (0.6-1.3); POTASSIUM 3.2 mmol/L (3.5-5.1)
[2018-09-30 17:59] LABS: ALBUMIN 4.2 g/dL (3.4-5.0); TOTAL BILIRUBIN 1.2 mg/dL (<0.1-1.0); TOTAL PROTEIN 7.8 g/dL (6.4-8.2)
[2018-09-30 18:47] VITALS: BP 106/57
== END 2018-09-30 18:53 | disposition home or self-care (01) ==
LOC: M.ERS 17:11
PROVIDERS: Nurse Practitioner Family
DX: F12.188 Cannabis abuse with other cannabis-induced disorder (principal)

== ENCOUNTER 2018-10-15 06:58 | Emergency (ER) | payer OTHER ==
[~2018-10-15] VITALS: Ht 154.9 cm; Wt 49.9 kg
[2018-10-15 07:41] VITALS: BP 119/77
== END 2018-10-15 07:41 | disposition home or self-care (01) ==
LOC: M.ERS 06:58
DX: R11.0 Nausea (principal)

== ENCOUNTER 2018-10-20 08:32 | Emergency (ER) | payer OTHER ==
[~2018-10-20] VITALS: Ht 154.9 cm; Wt 49.9 kg
[2018-10-20 08:43] LABS: URINE BILIRUBIN NEGATIVE (Negative); URINE BLOOD NEGATIVE (Negative); URINE CLARITY CLEAR; URINE COLOR YELLOW; URINE GLUCOSE-RANDOM NEGATIVE (Negative); URINE LEUKOCYTES-REFLEX NEGATIVE (Negative); URINE NITRITE-REFLEX NEGATIVE (Negative); URINE PROTEIN NEGATIVE (Negative); URINE UROBILINOGEN 0.2 E.U./dl (0.2-1.0)
[2018-10-20 08:45] LABS: URINE KETONES 3+ (Negative)
[2018-10-20 08:57] LABS: HEMATOCRIT 39.7 % (37.0-47.0); HEMOGLOBIN 13.8 gm/dL (12.0-15.0); MCH 31.7 pg (26.0-34.0); MCHC 34.7 g/dL (28.0-37.0); MCV 91.2 fL (80.0-100.0); MPV 8.8 fl. (7.2-11.1); RBC 4.36 mil/uL (4.20-5.00); RDW-CV 12.4 % (10.5-14.5); WBC 10.8 thou/uL (4.0-11.0)
[2018-10-20 09:13] LABS: CALCIUM 8.8 mg/dL (8.5-10.1); CREATININE 0.8 mg/dL (0.6-1.3); POTASSIUM 3.2 mmol/L (3.5-5.1)
[2018-10-20 09:17] LABS: ALBUMIN 4.3 g/dL (3.4-5.0); TOTAL BILIRUBIN 2.3 mg/dL (<0.1-1.0)
[2018-10-20 09:30] VITALS: BP 133/82
== END 2018-10-20 09:31 | disposition home or self-care (01) ==
LOC: M.ERS 08:32
PROVIDERS: Emergency Medicine Emergency Medical Services
DX: R11.2 Nausea with vomiting, unspecified (principal)

== ENCOUNTER 2018-11-06 12:41 | Emergency (ER) | payer OTHER ==
[~2018-11-06] VITALS: Ht 154.9 cm; Wt 49.9 kg
[2018-11-06 13:01] LABS: ABSOLUTE LYMPHOCYTES 1.3 thou/uL (0.8-5.3); ABSOLUTE MONOCYTES 0.4 thou/uL (0.0-1.2); ABSOLUTE NEUTROPHILS 8.6 thou/uL (1.6-8.1); BASOPHILS 0.2 %; HEMOGLOBIN 13.4 gm/dL (12.0-15.0); LYMPHOCYTES 12.6 %; MCH 31.1 pg (26.0-34.0); MCHC 34.4 g/dL (28.0-37.0); MCV 90.6 fL (80.0-100.0); MONOCYTES 4.3 %; NUCLEATED RBCS 0 /100WBC; PLATELET COUNT* 199 thou/uL (150-400); POLYS 82.9 %; RDW-CV 12.5 % (10.5-14.5); WBC 10.3 thou/uL (4.0-11.0)
[2018-11-06 13:12] LABS: CALCIUM 8.8 mg/dL (8.5-10.1); CREATININE 0.7 mg/dL (0.6-1.3)
[2018-11-06 13:16] LABS: ALBUMIN 4.3 g/dL (3.4-5.0); TOTAL BILIRUBIN 1.1 mg/dL (<0.1-1.0); TOTAL PROTEIN 8.3 g/dL (6.4-8.2)
[2018-11-06 13:24] LABS: URINE BLOOD 3+ (Negative); URINE CLARITY CLEAR; URINE COLOR YELLOW; URINE GLUCOSE-RANDOM NEGATIVE (Negative); URINE LEUKOCYTES-REFLEX NEGATIVE (Negative); URINE NITRITE-REFLEX NEGATIVE (Negative); URINE PROTEIN NEGATIVE (Negative); URINE UROBILINOGEN 0.2 E.U./dl (0.2-1.0)
[2018-11-06 13:27] LABS: ICTOTEST (BILI CONFIRMATORY) Negative (Negative); URINE BILIRUBIN 1+ (Negative); URINE KETONES 3+ (Negative)
[2018-11-06 13:31] LABS: AMP/METHAMP Negative (Negative); BARBITURATES Negative (Negative); BENZODIAZEPINES Negative (Negative); COCAINE Negative (Negative); METHADONE Negative (Negative); OPIATES Negative (Negative); PCP Negative (Negative); THC POSITIVE (Negative)
[2018-11-06 13:35] LABS: BACTERIA-REFLEX 1-9 Few /HPF (None Seen); CASTS None Seen /LPF (None Seen); CRYSTALS None Seen /LPF (None Seen); MUCUS None Seen strn/LPF (None Seen); SQUAMOUS 4-10 Moderate /LPF (0-3); URINE WBC-REFLEX 0-5 Rare /HPF (0-5)
[2018-11-06] MEDS ORDERED: PROMS25 WY RECTAL (14:11)
[2018-11-06] MEDS ORDERED: ZOFRAN ODT4 MG PO (14:11)
[2018-11-06 14:27] VITALS: BP 104/60
== END 2018-11-06 14:29 | disposition home or self-care (01) ==
LOC: M.ERS 12:41
PROVIDERS: Nurse Practitioner Family
DX: G43.A0 Cyclical vomiting, in migraine, not intractable (principal); E87.6 Hypokalemia

== ENCOUNTER 2019-01-14 07:41 | Emergency (ER) | payer OTHER ==
[~2019-01-14] VITALS: Ht 154.9 cm; Wt 49.9 kg
[2019-01-14] MEDS ORDERED: BENTYL 10 MG CA10 M1 PO (07:56)
[2019-01-14 08:20] LABS: ABSOLUTE LYMPHOCYTES 1.4 thou/uL (0.8-5.3); ABSOLUTE MONOCYTES 0.6 thou/uL (0.0-1.2); ABSOLUTE NEUTROPHILS 3.1 thou/uL (1.6-8.1); BASOPHILS 0.5 %; EOSINOPHILS 0.5 %; HEMOGLOBIN 12.6 gm/dL (12.0-15.0); MCH 31.5 pg (26.0-34.0); MCHC 34.1 g/dL (28.0-37.0); MCV 92.4 fL (80.0-100.0); MONOCYTES 11.8 %; NUCLEATED RBCS 0 /100WBC; PLATELET COUNT* 185 thou/uL (150-400); POLYS 60.2 %; RDW-CV 12.7 % (10.5-14.5); WBC 5.1 thou/uL (4.0-11.0)
[2019-01-14 08:32] LABS: CALCIUM 8.2 mg/dL (8.5-10.1); CREATININE 0.7 mg/dL (0.6-1.3); POTASSIUM 3.2 mmol/L (3.5-5.1)
[2019-01-14 08:36] LABS: ALBUMIN 3.7 g/dL (3.4-5.0); TOTAL BILIRUBIN 1.8 mg/dL (<0.1-1.0); TOTAL PROTEIN 6.9 g/dL (6.4-8.2)
[2019-01-14 08:53] LABS: URINE BILIRUBIN NEGATIVE (Negative); URINE BLOOD NEGATIVE (Negative); URINE CLARITY SL CLOUDY; URINE COLOR YELLOW; URINE GLUCOSE-RANDOM NEGATIVE (Negative); URINE KETONES NEGATIVE (Negative); URINE LEUKOCYTES-REFLEX 1+ (Negative); URINE PROTEIN NEGATIVE (Negative)
[2019-01-14 08:54] LABS: URINE NITRITE-REFLEX POSITIVE (Negative)
[2019-01-14 08:58] LABS: BACTERIA-REFLEX >30 Many /HPF (None Seen); URINE RBC None Seen /HPF (0-2); URINE WBC-REFLEX 0-5 Rare /HPF (0-5)
[2019-01-14 08:59] LABS: HYALINE CASTS 0-3 Few /LPF (None Seen); MUCUS >6 Heavy strn/LPF (None Seen); SQUAMOUS 4-10 Moderate /LPF (0-3)
[2019-01-14 09:00] LABS: AMP/METHAMP Negative (Negative); BARBITURATES Negative (Negative); BENZODIAZEPINES Negative (Negative); COCAINE Negative (Negative); CRYSTALS None Seen /LPF (None Seen); FINE GRANULAR CASTS 0-3 Few /LPF (None Seen); METHADONE Negative (Negative); OPIATES Negative (Negative); PCP Negative (Negative); THC POSITIVE (Negative)
[2019-01-14] MEDS ORDERED: ZOFRAN ODT4 MG DISSOLVE (09:46)
[2019-01-14] MEDS ORDERED: KEFLEX500 M1 PO (09:46)
[2019-01-14] MEDS ORDERED: POTASSIUM20 PO (09:49)
[2019-01-14 10:00] VITALS: BP 119/66
== END 2019-01-14 10:00 | disposition home or self-care (01) ==
LOC: M.ERS 07:41
PROVIDERS: Emergency Medicine Emergency Medical Services
DX: N39.0 Urinary tract infection, site not specified (principal); R11.2 Nausea with vomiting, unspecified; Z79.899 Other long term (current) drug therapy

== ENCOUNTER 2019-02-20 13:21 | Emergency (ER) | payer OTHER ==
[~2019-02-20] VITALS: Ht 154.9 cm; Wt 49.9 kg
[~2019-02-20 13:21] MED LIST changes: +BENTYL 10 MG CA10 M1 PO; +KEFLEX500 M1 PO
[2019-02-20] MEDS ORDERED: PHENERGAN 25 MG25 M1 PO (13:41)
[2019-02-20 13:55] LABS: ABSOLUTE LYMPHOCYTES 1.6 thou/uL (0.8-5.3); ABSOLUTE MONOCYTES 0.8 thou/uL (0.0-1.2); ABSOLUTE NEUTROPHILS 11.5 thou/uL (1.6-8.1); BASOPHILS 0.1 %; HEMATOCRIT 39.9 % (37.0-47.0); HEMOGLOBIN 13.8 gm/dL (12.0-15.0); LYMPHOCYTES 11.6 %; MCH 31.4 pg (26.0-34.0); MCHC 34.5 g/dL (28.0-37.0); MONOCYTES 5.7 %; MPV 8.8 fl. (7.2-11.1); NUCLEATED RBCS 0 /100WBC; PLATELET COUNT* 242 thou/uL (150-400); POLYS 82.6 %; RBC 4.38 mil/uL (4.20-5.00); WBC 13.9 thou/uL (4.0-11.0)
[2019-02-20 13:55] LABS: URINE BILIRUBIN NEGATIVE (Negative); URINE BLOOD 3+ (Negative); URINE CLARITY CLEAR; URINE COLOR YELLOW; URINE GLUCOSE-RANDOM NEGATIVE (Negative); URINE KETONES 2+ (Negative); URINE LEUKOCYTES-REFLEX NEGATIVE (Negative); URINE NITRITE-REFLEX NEGATIVE (Negative); URINE PROTEIN TRACE (Negative); URINE UROBILINOGEN 0.2 E.U./dl (0.2-1.0)
[2019-02-20 14:01] LABS: CALCIUM 9.1 mg/dL (8.5-10.1); CREATININE 0.9 mg/dL (0.6-1.3)
[2019-02-20 14:01] LABS: SQUAMOUS >10 Many /LPF (0-3)
[2019-02-20 14:02] LABS: POTASSIUM 2.9 mmol/L (3.5-5.1)
[2019-02-20 14:02] LABS: BACTERIA-REFLEX >30 Many /HPF (None Seen); CASTS None Seen /LPF (None Seen); CRYSTALS None Seen /LPF (None Seen); MUCUS >6 Heavy strn/LPF (None Seen); URINE RBC 0-2 Rare /HPF (0-2); URINE WBC-REFLEX None Seen /HPF (0-5)
[2019-02-20 14:05] LABS: ALBUMIN 4.5 g/dL (3.4-5.0); TOTAL BILIRUBIN 1.4 mg/dL (<0.1-1.0); TOTAL PROTEIN 8.5 g/dL (6.4-8.2)
[2019-02-20 14:27] LABS: AMP/METHAMP Negative (Negative); BARBITURATES Negative (Negative); BENZODIAZEPINES Negative (Negative); COCAINE Negative (Negative); METHADONE Negative (Negative); OPIATES Negative (Negative); PCP Negative (Negative); THC POSITIVE (Negative)
[2019-02-20] MEDS ORDERED: PROMS25 WY RECTAL (14:29)
[2019-02-20] MEDS ORDERED: POTASSIUM20 PO (14:31)
[2019-02-20 14:46] VITALS: BP 96/54
[2019-02-21] MEDS ORDERED: BENTYL 10 MG CA10 M1 PO (17:32)
[2019-02-21] MEDS ORDERED: PHENERGAN 25 MG25 M1 PO (17:32)
[2019-02-21] MEDS ORDERED: ONDANSETRON HCL4 M2 PO (18:00)
== END 2019-02-20 15:31 | disposition home or self-care (01) ==
LOC: M.ERS 13:21
PROVIDERS: Physician Assistant
DX: G43.A0 Cyclical vomiting, in migraine, not intractable (principal); E87.6 Hypokalemia; F12.90 Cannabis use, unspecified, uncomplicated; E80.7 Disorder of bilirubin metabolism, unspecified

== ENCOUNTER 2019-02-21 17:03 | Emergency (ER) | payer OTHER ==
[~2019-02-21] VITALS: Ht 154.9 cm; Wt 43.1 kg
[2019-02-21] MEDS ORDERED: PHENERGAN 25 MG25 M1 PO (17:32)
[2019-02-21] MEDS ORDERED: BENTYL 10 MG CA10 M1 PO (17:32)
[2019-02-21 17:42] LABS: URINE BILIRUBIN NEGATIVE (Negative); URINE BLOOD TRACE (Negative); URINE CLARITY CLEAR; URINE COLOR YELLOW; URINE GLUCOSE-RANDOM NEGATIVE (Negative); URINE KETONES 2+ (Negative); URINE LEUKOCYTES-REFLEX NEGATIVE (Negative); URINE NITRITE-REFLEX NEGATIVE (Negative); URINE PROTEIN TRACE (Negative); URINE SPECIFIC GRAVITY 1.015 (1.005-1.030); URINE UROBILINOGEN 0.2 E.U./dl (0.2-1.0)
[2019-02-21] MEDS ORDERED: ONDANSETRON HCL4 M2 PO (18:00)
[2019-02-21 18:39] LABS: ABSOLUTE LYMPHOCYTES 1.1 thou/uL (0.8-5.3); ABSOLUTE MONOCYTES 0.7 thou/uL (0.0-1.2); ABSOLUTE NEUTROPHILS 8.6 thou/uL (1.6-8.1); BASOPHILS 0.2 %; HEMATOCRIT 35.8 % (37.0-47.0); HEMOGLOBIN 12.3 gm/dL (12.0-15.0); LYMPHOCYTES 10.3 %; MCH 31.8 pg (26.0-34.0); MCHC 34.5 g/dL (28.0-37.0); MCV 92.1 fL (80.0-100.0); MONOCYTES 6.7 %; MPV 8.6 fl. (7.2-11.1); NUCLEATED RBCS 0 /100WBC; PLATELET COUNT* 190 thou/uL (150-400); POLYS 82.8 %; RBC 3.89 mil/uL (4.20-5.00); RDW-CV 12.7 % (10.5-14.5); WBC 10.4 thou/uL (4.0-11.0)
[2019-02-21 18:42] VITALS: BP 130/72
[2019-02-21 18:53] LABS: CALCIUM 8.3 mg/dL (8.5-10.1); CREATININE 0.6 mg/dL (0.6-1.3); POTASSIUM 3.1 mmol/L (3.5-5.1)
[2019-02-21 19:02] LABS: ALBUMIN 3.9 g/dL (3.4-5.0); TOTAL BILIRUBIN 1.3 mg/dL (<0.1-1.0); TOTAL PROTEIN 7.3 g/dL (6.4-8.2)
== END 2019-02-21 18:43 | disposition home or self-care (01) ==
LOC: M.ERS 17:03
PROVIDERS: Nurse Practitioner Family
DX: F12.188 Cannabis abuse with other cannabis-induced disorder (principal)

== ENCOUNTER 2019-02-22 14:13 | Emergency (ER) | payer OTHER ==
[~2019-02-22] VITALS: Ht 154.9 cm; Wt 49.9 kg
[~2019-02-22 14:13] MED LIST changes: +ONDANSETRON HCL4 M2 PO
[2019-02-22 15:24] LABS: ABSOLUTE LYMPHOCYTES 1.4 thou/uL (0.8-5.3); ABSOLUTE MONOCYTES 0.9 thou/uL (0.0-1.2); BASOPHILS 0.2 %; HEMATOCRIT 36.9 % (37.0-47.0); HEMOGLOBIN 12.8 gm/dL (12.0-15.0); LYMPHOCYTES 13.2 %; MCH 31.6 pg (26.0-34.0); MCHC 34.5 g/dL (28.0-37.0); MCV 91.4 fL (80.0-100.0); MPV 9.1 fl. (7.2-11.1); NUCLEATED RBCS 0 /100WBC; PLATELET COUNT* 189 thou/uL (150-400); POLYS 77.6 %; RBC 4.04 mil/uL (4.20-5.00); RDW-CV 12.8 % (10.5-14.5); WBC 10.3 thou/uL (4.0-11.0)
[2019-02-22 15:31] LABS: CALCIUM 8.5 mg/dL (8.5-10.1); CREATININE 0.6 mg/dL (0.6-1.3)
[2019-02-22 15:33] LABS: POTASSIUM 2.7 mmol/L (3.5-5.1)
[2019-02-22 17:00] LABS: URINE BILIRUBIN NEGATIVE (Negative); URINE BLOOD 2+ (Negative); URINE CLARITY CLEAR; URINE COLOR YELLOW; URINE GLUCOSE-RANDOM NEGATIVE (Negative); URINE LEUKOCYTES NEGATIVE (Negative); URINE NITRITE NEGATIVE (Negative); URINE PROTEIN NEGATIVE (Negative); URINE SPECIFIC GRAVITY 1.015 (1.005-1.030)
[2019-02-22 17:01] LABS: URINE KETONES 3+ (Negative)
[2019-02-22 17:07] LABS: AMP/METHAMP Negative (Negative); BARBITURATES Negative (Negative); BENZODIAZEPINES Negative (Negative); COCAINE Negative (Negative); METHADONE Negative (Negative); OPIATES Negative (Negative); PCP Negative (Negative); THC POSITIVE (Negative)
[2019-02-22 17:29] LABS: SQUAMOUS >10 Many /LPF (0-3)
[2019-02-22 17:30] LABS: MUCUS 0-3 Light strn/LPF (None Seen)
[2019-02-22 17:31] LABS: CRYSTALS None Seen /LPF (None Seen); URINE WBC 0-5 Rare /HPF (0-5)
[2019-02-22 17:32] LABS: CASTS None Seen /LPF (None Seen); URINE RBC 0-2 Rare /HPF (0-2)
[2019-02-22 18:06] VITALS: BP 92/59
== END 2019-02-22 18:08 | disposition left against medical advice (07) ==
LOC: M.ERS 14:13
PROVIDERS: Nurse Practitioner
DX: E87.6 Hypokalemia (principal); R11.2 Nausea with vomiting, unspecified

== ENCOUNTER 2019-03-25 09:45 | Emergency (ER) | payer OTHER ==
[~2019-03-25] VITALS: Ht 154.9 cm; Wt 49.9 kg
[2019-03-25 10:01] LABS: URINE BILIRUBIN NEGATIVE (Negative); URINE BLOOD 2+ (Negative); URINE CLARITY SL CLOUDY; URINE COLOR YELLOW; URINE GLUCOSE-RANDOM NEGATIVE (Negative); URINE KETONES 1+ (Negative); URINE LEUKOCYTES-REFLEX NEGATIVE (Negative); URINE NITRITE-REFLEX NEGATIVE (Negative); URINE PROTEIN NEGATIVE (Negative)
[2019-03-25 10:10] LABS: SQUAMOUS 4-10 Moderate /LPF (0-3); URINE WBC-REFLEX 0-5 Rare /HPF (0-5)
[2019-03-25 10:11] LABS: CASTS None Seen /LPF (None Seen); CRYSTALS None Seen /LPF (None Seen); MUCUS 0-3 Light strn/LPF (None Seen); URINE RBC 0-2 Rare /HPF (0-2)
[2019-03-25 10:36] LABS: HEMATOCRIT 39.3 % (37.0-47.0); HEMOGLOBIN 13.9 gm/dL (12.0-15.0); MCH 31.6 pg (26.0-34.0); MCHC 35.4 g/dL (28.0-37.0); MCV 89.2 fL (80.0-100.0); MPV 8.7 fl. (7.2-11.1); RBC 4.4 mil/uL (4.20-5.00); RDW-CV 12.2 % (10.5-14.5); WBC 7.8 thou/uL (4.0-11.0)
[2019-03-25 10:45] LABS: CREATININE 0.8 mg/dL (0.6-1.3)
[2019-03-25 10:46] LABS: POTASSIUM 2.4 mmol/L (3.5-5.1)
[2019-03-25] MEDS ORDERED: POTASSIUM20 MEQ/15 PER TUBE (11:00)
[2019-03-25] MEDS ORDERED: PHENERGAN 25 MG25 M1 PO (11:00)
[2019-03-25] MEDS ORDERED: PROMS25 WY RECTAL (11:00)
[2019-03-25 11:14] VITALS: BP 120/79
== END 2019-03-25 11:16 | disposition home or self-care (01) ==
LOC: M.ERS 09:45
PROVIDERS: Personal Emergency Response Attendant
DX: E87.6 Hypokalemia (principal); R11.2 Nausea with vomiting, unspecified